=== PATIENT | male | born 1945 | race Caucasian/White ===

== ENCOUNTER 2017-12-21 08:16 | Day surgery (SDC) | payer OTHER ==
[2017-12-21 09:04] VITALS: BMI 44.2
[2017-12-21] MEDS ORDERED: PROPOFOL 20 ML ONE (09:17)
[2017-12-21] MEDS ORDERED: LIDOCAINE HCL/PF 2% SDV 5ML VIAL ONE (09:17)
[2017-12-21] MEDS ORDERED: METOPROLOL TARTRATE 5 MG/5 ML VIAL ONE (09:18)
[2017-12-21 09:56] VITALS: TEMP 98
[2017-12-21 10:43] VITALS: BP 114/74; PULSE 88
--- NOTE | 2017-12-24 13:56 | PATH ---
Surgical Pathology Report Patient Name: JACKSON GAGE [facility]. Rec. #: [id number] /Age/Gender: 1945 (Age: 72) / M Account: [id number] Location: ASU-ENDOSCOPY Taken: 12/21/2017 Received: 12/21/2017 Reported: 12/24/2017 Physicians: Tenzin Witt M.D. Specimen(s) Received A: BX POLYP TRANSVERSE COLON B: POLYP ASCENDING COLON C: POLYP TRANSVERSE COLON D: POLYP SIGMOID POLYP E: RECTAL POLYP Clinical History History of polyps Postoperative diagnosis: Colon polyps, internal hemorrhoids Final Diagnosis A. TRANSVERSE COLON, POLYP #1, BIOPSY: TUBULAR ADENOMA. B. ASCENDING COLON, POLYP #1, BIOPSY: TUBULAR ADENOMA. C. TRANSVERSE COLON, POLYP #2, BIOPSY: HYPERPLASTIC POLYP. D. SIGMOID COLON, POLYP, BIOPSY: HYPERPLASTIC POLYP. E. RECTUM, POLYP, BIOPSY: HYPERPLASTIC POLYP. Electronically Signed Cata Paiz M.D. Gross Description A. Received in formalin, labeled "biopsy polyp #1 transverse colon" are 5 mccray, irregular portions of soft tissue ranging from 0.1-0.3 cm. in greatest dimension. The specimens are submitted in toto in one cassette. B. Received in formalin, labeled "biopsy polyp #1 ascending colon" is a mccray, irregular portion of soft tissue measuring 0.3 cm. in greatest dimension. The specimen is submitted in toto in one cassette. C. Received in formalin, labeled "biopsy polyp #2 transverse colon" are 2 mccray, irregular portions of soft tissue measuring 0.2 and 0.5 cm. in greatest dimension. The specimens are submitted in toto in one cassette. D. Received in formalin, labeled "biopsy polyp sigmoid colon" is a mccray, irregular portion of soft tissue measuring 0.2 cm. in greatest dimension. The specimen is submitted in toto in one cassette. E. Received in formalin, labeled "biopsy rectal polyp" is a mccray, irregular portion of soft tissue measuring 0.3 cm. in greatest dimension. The specimen is submitted in toto in one cassette. DL/12/21/2017 saudi/12/21/2017
== END 2017-12-21 10:57 | disposition home or self-care (01) ==
LOC: JASU-ENDO 08:16
PROVIDERS: ATTEND Internal Medicine Gastroenterology
PROC: 0DBL8ZX Excision of Transverse Colon, Via Natural or Artificial Opening Endoscopic, Diagnostic (ICD-10-PCS; 2017-12-21)
PROC: 0DBN8ZX Excision of Sigmoid Colon, Via Natural or Artificial Opening Endoscopic, Diagnostic (ICD-10-PCS; 2017-12-21)
PROC: 0DBP8ZX Excision of Rectum, Via Natural or Artificial Opening Endoscopic, Diagnostic (ICD-10-PCS; 2017-12-21)
PROC: 0DBK8ZX Excision of Ascending Colon, Via Natural or Artificial Opening Endoscopic, Diagnostic (ICD-10-PCS; principal; 2017-12-21 12:45)
DX: Z12.11 Encounter for screening for malignant neoplasm of colon (principal); Z86.010 Personal history of colon polyps; K62.1 Rectal polyp; D12.2 Benign neoplasm of ascending colon; D12.5 Benign neoplasm of sigmoid colon; D12.3 Benign neoplasm of transverse colon; K57.30 Diverticulosis of large intestine without perforation or abscess without bleeding; K64.8 Other hemorrhoids
CPT/HCPCS: 88305-TC

== ENCOUNTER 2019-06-23 09:35 | Emergency (ER) | payer OTHER ==
[2019-06-23 10:07] VITALS: BP 166/63; PULSE 70; TEMP 98.2; BMI 28.7
--- NOTE | 2019-06-23 10:29 | PDOC ---
Attending Attestation - Resident Resident Name: Jarad Hunyh - ED Attending Attestation I have performed the following: I have examined & evaluated the patient, The case was reviewed & discussed with the resident, I agree w/resident's findings & plan, Exceptions are as noted - HPI HPI: 06/23/19 10:55 74 years old with past medical history significant for hypertension COPD CHF presents to the emergency department with mechanical fall onto his right shoulder and hip 2 days ago. Mechanical fall no prodrome of dizziness lightheadedness chest pain shortness of breath did not seek medical attention feels sore has good range of motion but limited range of motion to the right shoulder pain is worse with movement alleviated by rest no problems ambulating no neck pain no head pain denies any head trauma symptoms are mild to moderate worse with movement alleviated by rest ROS: A complete review of 10 out of 10 review of systems is taken and is negative apart from what is previously mentioned below and in the HPI. - Physicial Exam PE: 06/23/19 10:55 Vitals: Triage Vital signs reviewed General Appearance: No acute distress, well nourished well developed, Head: Atraumatic, Eyes: Pupils equal reactive round, extraocular movement intact Ears: TM's normal bilaterally; Nose: Nares patent bilaterally; no nasal congestion Throat: Posterior oropharynx without erythema, mucous membranes moist, Neck: Supple; no Nucal rigidity Chest Wall: Nontender Extremities: Decreased range of motion to right shoulder able to flex extend range across body Skin: Warm and dry, no rashes or lesions, no rash, no petechiae Neuro: AOX3; cranial Nerves 2-12 grossly intact, strength intact to all extremities, sensation intact to all extremities, gait normal Psych: Normal mood, normal affect - Medical Decision Making 06/23/19 10:57 Well-appearing no apparent distress mechanical fall with shoulder and hip injury. X-rays performed no evidence of any fracture dislocation will have patient follow-up with orthopedics within 1 weeks Tylenol for pain Findings, need for follow-up and strict return instructions discussed with patient.
--- NOTE | 2019-06-23 10:41 | PDOC ---
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 He didn't see medical attention then but today he was still uncomfortable. Didn't take any pain medication. Pain is mostly located over the right shoulder and right hip. Denies fever, chills. Able to ambulate. Past History - Past Medical History Allergies/Adverse Reactions: Allergies Allergy/AdvReac Type Severity Reaction Status Date / Time No Known Allergies Allergy Verified 05/09/14 19:24 Home Medications: Ambulatory Orders Nifedipine ER [Procardia XL -] 90 mg PO DAILY 30 Days tab.[email or web address] 05/18/14 Hydrochlorothiazide [Hctz -] 12.5 mg PO DAILY 12/13/17 Atorvastatin Ca [Lipitor] 20 mg PO HS 06/23/19 Carvedilol [Coreg -] 25 mg PO BID 06/23/19 [place] Q Plus Reservatrol 2 cap PO DAILY 06/23/19 Anemia: No Asthma: No Cancer: No Cardiac Disorders: Yes (CORONARY ARTERY DISEASE) CVA: No COPD: No CHF: Yes Dementia: No Diabetes: No GI Disorders: Yes (COLON POLYPS) Disorders: No HTN: Yes Hypercholesterolemia: Yes Liver Disease: No Seizures: No Thyroid Disease: No - Immunization History Immunization Up to Date: Yes - Psycho Social/Smoking Cessation Hx Smoking History: Former smoker Have you smoked in the past 12 months: No If you are a former smoker, when did you quit?: 1983 Information on smoking cessation initiated: No Hx Alcohol Use: No Drug/Substance Use Hx: No Substance Use Type: None Hx Substance Use Treatment: No Review of Systems - Review of Systems Able to Perform ROS?: Yes Is the patient limited Korean proficient: No Constitutional: No: Symptoms Reported HEENTM: No: Symptoms Reported Respiratory: No: Symptoms reported Cardiac (ROS): No: Symptoms Reported ABD/GI: No: Symptoms Reported : No: Symptoms Reported Musculoskeletal: Yes: See HPI Integumentary: No: Symptoms Reported All Other Systems: Reviewed and Negative *Physical Exam - Vital Signs Last Vital Signs Temp Pulse Resp BP Pulse Ox 98.2 F 70 20 166/63 93 L 06/23/19 09:37 06/23/19 09:37 06/23/19 09:37 06/23/19 09:37 06/23/19 09:37 - Physical Exam General Appearance: Yes: Nourished, Appropriately Dressed. No: Apparent Distress HEENT: positive: EOMI, HOLLIS, Normal ENT Inspection Respiratory/Chest: positive: Lungs Clear, Normal Breath Sounds. negative: Chest Tender, Respiratory Distress Cardiovascular: positive: Regular Rhythm, Regular Rate, S1, S2 Gastrointestinal/Abdominal: positive: Normal Bowel Sounds, Flat, Soft. negative : Tender Musculoskeletal: positive: Other (abduct right shoulder to 90degrees max. Negative Neer's test and Monet. No Sore over right hip. ) Integumentary: positive: Normal Color, Dry, Warm Neurologic: positive: Fully Oriented, Alert, Normal Mood/Affect, Normal Response , Motor Strength / ED Treatment Course - RADIOLOGY Radiology Studies Ordered: Category Date Time Status CHEST PA & LAT [RAD] Stat Radiology 06/23/19 10:05 Ordered HIP & PELVIS-RIGHT [RAD] Stat Radiology 06/23/19 10:05 Ordered SHOULDER-RIGHT [RAD] Stat Radiology 06/23/19 10:05 Taken Medical Decision Making - Medical Decision Making 06/23/19 10:51 74M with right shoulder and hip pain. Xrays negative for fracture or dislocation of the hip and shoulder. Will recommend taking Tylenol and send home. Recommend MRi and Ortho follow up if pain doesn't get better. Discharge - Discharge Information Problems reviewed: Yes Clinical Impression/Diagnosis: Shoulder pain Condition: Good Disposition: HOME - Admission No - Follow up/Referral Referrals: Rich Lomax MD [Primary Care Provider] - Jairo Olguin DO [Staff Physician] - - Patient Discharge Instructions Patient Printed Discharge Instructions: How to Prevent Falls Additional Instructions: Take Tylenol for pain. Follow up with Dr. Olguin if pain doesn't subside. Come back to the emergency department for any new, worsening or concerning symptom. - Post Discharge Activity
== END 2019-06-23 11:02 | disposition home or self-care (01) ==
LOC: FER 09:35
DX: M25.511 Pain in right shoulder (principal); W18.39XA Other fall on same level, initial encounter; Y93.9 Activity, unspecified; Y92.89 Other specified places as the place of occurrence of the external cause; Y99.0 Civilian activity done for income or pay; Z87.891 Personal history of nicotine dependence; I25.10 Atherosclerotic heart disease of native coronary artery without angina pectoris; I50.9 Heart failure, unspecified; E78.00 Pure hypercholesterolemia, unspecified; I10 Essential (primary) hypertension
CPT/HCPCS: 71046-TC-FY; 73030-TC-RT-FY; 73523-TC-FY; 99282-25

== ENCOUNTER 2023-12-13 19:02 | Emergency (ER) | payer SELFPAY ==
[2023-12-13] MEDS: EPINEPHrine 1:10,000 (P-F SYR) 1 MG/10 ML DISP.SYRIN IVPUSH ONE ×3 (19:03→19:09)
[2023-12-13 19:21] VITALS: BP 00/00; PULSE 0; RESP 0; BMI 30.9
== END 2023-12-13 21:01 | disposition expired ==
LOC: JER 19:02
DX: I46.9 Cardiac arrest, cause unspecified (principal)
CPT/HCPCS: 99285-25